=== PATIENT | female | born 1955 | race Caucasian/White ===

== ENCOUNTER 2019-11-25 07:06 | Observation (INO) ==
[2019-10-26 17:04] LABS: Basophils # (auto) 0.04 K/uL (0-0.2); Basophils % (auto) 0.7 %; Eosinophils # (auto) 0.14 K/uL (0-0.5); Eosinophils % (auto) 2.4 %; Hematocrit (blood only) 41.8 % (37-47); Hemoglobin 13.8 g/dL (12.0-16.0); Immature Granulocytes # (auto) 0.02 K/uL (0.00-0.02); Immature Granulocytes % (auto) 0.3 %; Lymphocytes # (auto) 1.34 K/uL (1.2-3.4); Lymphocytes % (auto) 22.9 %; Mean Corpuscular Hemoglobin 31.3 pg (25-34); Mean Corpuscular Volume 94.8 fL (80-100); Monocytes # (auto) 0.53 K/uL (0.11-0.59); Neutrophils # (auto) 3.79 K/uL (1.4-6.5); Neutrophils % (auto) 64.7 %; Platelet Count 185 K/uL (130-400); RDW Coefficient of Variation 13.6 % (11.5-14.5); RDW Standard Deviation 47.1 fL (36.4-46.3); Red Blood Count 4.41 M/uL (4.2-5.4); White Blood Count 5.86 K/uL (4.8-10.8)
[2019-10-26 17:12] LABS: INR 1.2 (0.9-1.1); Prothrombin Time 12.9 Seconds (9.0-12.0)
[2019-10-26 17:31] LABS: Alanine Aminotransferase 20 U/L (12-78); Albumin Level 3.7 gm/dl (3.4-5.0); Aspartate Aminotransferase 18 U/L (15-37); BUN Creatinine Ratio 14.6 (10-20); Blood Urea Nitrogen 21 mg/dl (7-18); C Reactive Protein < 0.29 mg/dl (0-0.29); Calcium 9.2 mg/dl (8.5-10.1); Carbon Dioxide 31 mmol/L (21-32); Chloride 100 mmol/L (98-107); Est GFR (African American) 44.1; Est GFR (Non-African American) 38.1; Glucose 92 mg/dl (70-99); Potassium 4.7 mmol/L (3.5-5.1); Sodium 135 mmol/L (136-145)
[2019-10-26 17:34] LABS: Albumin Globulin Ratio 0.9 (0.9-2); Alkaline Phosphatase 87 U/L (45-117); Bilirubin,Total 0.5 mg/dl (0.2-1); Total Protein 7.7 gm/dl (6.4-8.2)
--- NOTE | 2019-11-20 10:16 | Anesthesiology Consultation ---
Date of Service November 20, 2019 Assessment & Plan (1) Encounter for pre-operative examination: Chart Review Chart Review: Acceptable Risk for Surgery (pending preop Covid test results 11/19) and Patient NOT seen in Pre Admission Testing Per nursing assessment 11/19/2019, patient resides in [facility]. Travels to [facility]. Wears mask in public. Scheduled for preop COVID testing 11/20/2019. Cardio Clearance letter 06/16/19= "Low to moderate risk" for cardiac complications during proposed procedure. Optimal cardiac monitoring is required during procedure. History Surgery Operation Date: 11/25/19 12:45 Proposed Procedures p Left Total Knee Arthroplasty - Kaleb Billings MD Height/Weight Height: 5 ft 2 in Weight: 85.275 kg Allergies Allergy/AdvReac Type Severity Reaction Status Date / Time tadalafil Allergy Severe SEVERE Verified 11/19/19 15:02 MYALGIAS amoxicillin Allergy Mild RASH Verified 11/19/19 15:02 clindamycin Allergy Mild RASH Verified 11/19/19 15:02 trazodone Allergy Mild BLADDER Verified 11/19/19 15:02 ULCERATIONS Medications Home Medications Medication Instructions Recorded Confirmed Last Taken alprazolam [Xanax] 1 mg PO HS 06/05/19 11/19/19 Unknown amlodipine [Norvasc] 5 mg PO QAM 06/05/19 11/19/19 Unknown aspirin [Aspirin Low Dose] 81 mg PO QAM 06/05/19 11/19/19 Unknown calcium carbonate [Calcium 600] 1,200 mg PO QPM 06/05/19 11/19/19 Unknown carvedilol [Coreg] 6.25 mg PO BID 06/05/19 11/19/19 Unknown cholecalciferol (vitamin D3) 50 mcg PO QPM 06/05/19 11/19/19 Unknown [Vitamin D3] doxepin 50 mg PO QPM 06/05/19 11/19/19 Unknown duloxetine [Cymbalta] 60 mg PO QPM 06/05/19 11/19/19 Unknown ferrous sulfate [iron] 325 mg PO QAM 06/05/19 11/19/19 Unknown furosemide [Lasix] 20 mg PO QAM 06/05/19 11/19/19 Unknown hydroxychloroquine [Plaquenil] 200 mg PO BID 06/05/19 11/19/19 Unknown lacosamide [Vimpat] 50 mg PO BID 06/05/19 11/19/19 Unknown lamotrigine [Lamictal] 50 mg PO BID 06/05/19 11/19/19 Unknown losartan 100 mg PO QAM 06/05/19 11/19/19 Unknown omega 0-yhw-wdb-fish oil [Fish Oil] 2 cap PO QPM 06/05/19 11/19/19 Unknown pantoprazole [Protonix] 20 mg PO QAM 06/05/19 11/19/19 Unknown rivaroxaban [Xarelto] 20 mg PO QAM 06/05/19 11/19/19 Unknown sotalol 40 mg PO BID 06/05/19 11/19/19 Unknown atorvastatin 40 mg PO PM 11/19/19 11/19/19 Unknown buprenorphine [Butrans] 1 patch TRANSDERMAL Q7D 11/19/19 11/19/19 Unknown cholecalciferol (vitamin D3) 50 mcg PO QPM 11/19/19 11/19/19 Unknown [Vitamin D3] fluoxetine [Prozac] 20 mg PO QAM 11/19/19 11/19/19 Unknown levothyroxine [Synthroid] 200 mcg PO QAM 11/19/19 11/19/19 Unknown Past Medical History Medical History Anemia Stable - on iron supplement Anxiety CAD (coronary artery disease) NSTEMI with RCA stent 11/13/16. Subsequent stent occlusion with inferior STEMI 12/04/16- two PERLA to RCA. Went into complete heart block (+ pacemaker placed) Depression GERD (gastroesophageal reflux disease) Controlled and stable High cholesterol History of atrial fibrillation 2016- stable and controlled History of complete heart block History of sick sinus syndrome Hx of seizure disorder "stress induced" seizures- seen by neurologist Dr. Tan/Riddhi)- last seizure episode 01/2019- no issues since changed to Vimpat Hypertension Hypothyroidism Kidney stones No current issues Obesity Pulmonary hypertension Stable- no oxygen needed- follows with cardio - considered mild per cardio Rheumatoid arthritis Follows with bed placement coordinator - stable Past Family History Family History Grandmother (Maternal) Family history of diabetes mellitus Grandfather (Paternal) Family history of diabetes mellitus Family hx of colon cancer Past Surgical History Surgical History (Updated 11/20/19 @ 10:10 by Paula French PA-C) History of ankle surgery RIGHT History of carpal tunnel release of both wrists History of permanent cardiac pacemaker placement PLACED 2017 BRADYCARDIA (MONITORED BY DR. LUIS ZAMBRANO) History of repair of left rotator cuff History of tooth extraction Hx of cardiac cath 2011 and 2017 Hx of colonoscopy Hx of foot surgery RIGHT AND LEFT Social History Smoking Status: Never smoker Do You Dip or Chew Tobacco: No Hx Alcohol Use: No Hx Substance Use: No Testing Laboratory Results 10/26/19 13:12 10/26/19 13:12 PT 12.9 Seconds (9.0-12.0) H 10/26/19 13:12 INR 1.2 (0.9-1.1) H 10/26/19 13:12 Blood Type O Positive 10/26/19 13:12 Antibody Screen NEGATIVE 10/26/19 13:12 Electrocardiogram Date: 03/17/19 Findings: + NSR @ (60) Chest X-Ray Date: 06/12/19 Findings: + NAD There is minor subsegmental atelectasis/scarring the retroxiphoid region Echocardiogram Date: 05/07/18 EF: 60% LV Function: normal Grade I diastolic dysfunction. LA- severely dilated. RA slightly dilated. RV- mildly dilated. Mild to mod MR. Mod TR. Stress Test Date: 04/01/19 Type: nuclear No evidence of myocardial ischemia or infarction. Lexiscan stress EKG for myocardial ischemia Cardiac Catheterization Date: 12/04/16 Left Main = free of any significant disease. LAD = mild to moderate diffuse disease in the proximal to mid LAD. Circumflex =40% stenosis. RCA = PL gives collaterals over to the circumflex system. 99% stenosis in mid stent. 80% lesion at the ostium. PERLA to mid RCA, PERLA to ostial RCA Cervical Spine Date: 06/12/19 Mildly demineralized appearance of the bones. The C6 and C7 vertebral bodies are suboptimally visualized secondary to overlying soft tissue. Predental interval appears normal. Satisfactory alignment with neutral, flexion and extension without evidence of instability. Moderate disc space narrowing at C3-C4 and C6- C7 with mild C5-C6 disc space narrowing. Multilevel spondylitic spurring with moderate facet arthrosis. There is no prevertebral soft tissue swelling or opaque foreign body. Other Testing Remote Pacer check 11/05/19= [employer]. Implanted 03/18/17. RA paced 94%. RV paced 2.7%. Mode: DDDR. " There was one AHR event which appears to be one-to-one SVT @157 bpm lasting 35 seconds. This is an abnormal implantable pacemaker remote follow-up. No significant device related abnormalities were noted. Patient will continue with remote follow-up with ongoing active surveillance and quarterly remote interrogations."
--- NOTE | 2019-11-21 13:17 | History and Physical Report ---
DATE OF ADMISSION: 11/25/2019 CHIEF COMPLAINT: Left knee pain, discomfort and stiffness. HISTORY OF PRESENT ILLNESS: The patient is a 64-year-old female who has a custodial diagnosis of underlying rheumatoid arthritis who presents for treatment of her left knee. She has got a long history of left knee pain and discomfort, describes it has gotten worse over the past 10 years. She has been through extensive conservative treatment, which has not been very successful. She is not interested in anymore conservative care and would like to have her left knee replaced. She describes global pain in the knee. The more she walks, the more it hurts. She can walk a couple of blocks and that is about it. She limps with every step. She has nighttime pain. Of note, this patient did have a right ankle fused by myself back in 11/2014, done well from this. PAST MEDICAL HISTORY: 1. Hypertension. 2. Pacemaker placement. 3. Anxiety/depression. 4. Pulmonary hypertension. 5. History of a stress and seizure in the past. 6. Hypothyroidism. 7. Chronic anemia. 8. Kidney stones. PAST SURGICAL HISTORY: Include: 1. Bilateral carpal tunnel released. 2. Vásquez's neuromas excision. 3. Left shoulder surgery. 4. Right ankle arthrodesis. 5. Cardiac stent placement, left pacemaker placement. ALLERGIES: AMOXICILLIN, WHICH CAUSES A RASH. No breathing problems. ALSO DESCRIBES ALLERGIES TO CLINDAMYCIN, DESYREL, AND ADCIRCA. CURRENT MEDICINES: Include: 1. Aspirin 81 mg a day. 2. Synthroid 175 mcg a day. 3. Vimpat 50 mg twice a day. 4. Losartan 100 mg in the morning. 5. Norvasc 5 mg in the morning. 6. Sotalol 40 mg twice a day. 7. Coreg 6.25 mg twice a day. 8. Xarelto 20 mg in the morning. 9. Lamictal 50 mg twice a day. 10. Protonix. 11. Cymbalta. 12. Plaquenil. 13. Fish oil. 14. Fentanyl patch every 72 hours. SOCIAL HISTORY: A 64-year-old female. She does not smoke. FAMILY HISTORY: Noncontributory. REVIEW OF SYSTEMS: Significant for underlying rheumatoid disease. Denies any current chest pain or shortness of breath. Does have a cardiac history with a pacemaker and stent placed. She is on Xarelto. No DVTs or PEs in the past. PHYSICAL EXAMINATION: GENERAL: Shows a pleasant, middle-aged female. Looks to be in reasonably good health. HEENT: Benign. NECK: Supple, no lymphadenopathy. LUNGS: Clear to auscultation. HEART: Has a regular rate and rhythm. ABDOMEN: Soft, nontender, nondistended. EXTREMITIES: Grossly neurovascularly intact except as follows. Examination of the left knee reveals the patient walks with a stiff knee gait. She clearly limps on this side. She had varus deformity to her knee. She has very stiff knee with about 10 degree flexion contracture and can only bend to about 90 degrees, which is painful. No pain with hip motion. Small knee effusion. X-RAYS: X-rays of the left knee reviewed. Shows advanced medial compartment DJD. She has complete loss of medial joint space. She has got varus deformity to her knee with cystic changes of the medial femoral condyle and medial tibial plateau. She has subchondral sclerosis. She has advanced patellofemoral disease. ASSESSMENT: A 64-year-old white female with multiple underlying medical issues including significant rheumatoid disease, hypertension, coronary artery disease status post stent placement, cardiac pacemaker placement, hypothyroidism, chronic anemia with advanced left knee degenerative joint disease. She has failed conservative treatment. She would like to have her left knee replaced. PLAN: We will take her to the operating table and do left total knee replacement. The risks and benefits of this procedure were explained to the patient including but not limited to DVT, PE, , infection, neurological injury, vascular injury, bleeding problem, pain, limited range of motion, stiffness, failure to relieve her symptoms, incomplete relief of symptoms, need for further surgery in future, fracture, leg length inequality, nerve palsy, need for revision surgery. The patient understands and desires to proceed. Informed consent was obtained. She knows to stop her Xarelto 3 days preop. She will take her sotalol in the morning with a sip of water. We will likely put some vancomycin in the cement due to her immunocompromised state. MTDD
[~2019-11-25 07:06] MED LIST: ACETAMINOPHEN 500 MG TAB PO SCH; BUPIVACAINE 0.25% 30 ML VIAL ONE; BUPIVACAINE 0.5 % 5 MG/1 ML PF 10ML VIAL ONE; BUPIVACAINE LIPOSOME/PF 266 MG, BUPIVACAINE/EPINEPHRINE 50 ML, SODIUM CHLORIDE 0.9% 30 ... INFIL SCH; CEFAZOLIN 2000MG 2,000 MG/15 ML SYR IV SCH; FAMOTIDINE 20 MG TAB PO SCH; GABAPENTIN 300 MG CAP PO SCH; LR 15ML/HR IV SCH; LR 60ML/HR IV SCH; METOCLOPRAMIDE HCL 10 MG TABLET PO SCH; TRANEXAMIC ACID 1,000 MG **IV Intra-op IV SCH
--- NOTE | 2019-11-25 07:09 | History & Physical Bridge Note ---
Date of Service November 25, 2019 History & Physical Bridge Note I have examined the patient, reviewed the History & Physical and in the interval since the performance of the History & Physical I have noted the following changes of clinical significance: no changes noted
[2019-11-25] MEDS ORDERED: MIDAZOLAM HCL 1 MG/ML 2ML VIAL ONE (08:22)
[2019-11-25] MEDS ORDERED: ePHEDrine sulfate 50 MG/ML AMP IV PRN (08:47)
[2019-11-25] MEDS ORDERED: BUPIVACAINE/EPINEPHRINE 0.25% 1:200,000 30 ML VIAL ONE (08:47)
[2019-11-25] MEDS ORDERED: ONDANSETRON INJ 2 MG/ML 2 ML VIAL IV PRN ×2 (08:47→13:30)
[2019-11-25] MEDS ORDERED: HYDROmorphone INJ 1 MG/ML SYRINGE IV PRN (08:47)
[2019-11-25] MEDS ORDERED: ATROPINE SULFATE 0.1 MG/ML 10ML SYR IV PRN (08:47)
[2019-11-25] MEDS ORDERED: VANCOMYCIN HCL 1000MG/20ML VIAL ONE (08:48)
[2019-11-25] MEDS ORDERED: SODIUM CHLORIDE 0.9% PF 50 ML VIAL ONE (08:48)
[2019-11-25] MEDS ORDERED: BUPIVACAINE LIPOSOME 1.3% 266 MG/20 ML VIAL ONE (08:48)
[2019-11-25] MEDS ORDERED: BACITRACIN INJ 50,000 UNIT VIAL ONE (08:48)
[2019-11-25] MEDS ORDERED: fentaNYL citrate 100 MCG/2 ML VIAL ONE ×2 (09:06→09:22)
[2019-11-25] MEDS ORDERED: HYDROmorphone INJ 2 MG/ML SYR/VIAL ONE (09:22)
[2019-11-25] MEDS ORDERED: PROPOFOL IV EMULSION 10 MG/ML 20 ML VIAL IV ONE (09:30)
[2019-11-25] MEDS ORDERED: ONDANSETRON INJ 2 MG/ML 2 ML VIAL ONE ×2 (09:30→11:09)
--- NOTE | 2019-11-25 10:54 | Post Operative Brief Note ---
PG Immediate Post Op with CF Date of Surgery November 25, 2019 Pre & Post Diagnosis Operation Date: 11/25/19 09:05 Pre-Op Diagnosis: Left Knee Degenerative Joint Disease; Knee Pain Post-Op Diagnosis: Left Knee Degenerative Joint Disease; Knee Pain I identified the patient and participated in the time-out.: Yes Procedure Operation Date: 11/25/19 09:05 Actual Procedures p Left Total Knee Arthroplasty(Left) - Kaleb Billings MD Surgeon Kaleb Billings MD Orientation & Mobility Specialist Felicia, [facility] Estimated Blood Loss 50 Findings Consistent with Post-Op Diagnosis Fluids 1400 cc Specimens Specimen Description: Permanent Specimen: A) Left Knee Bone & Tissue Drains Craig Catheter Anesthesia Type General Regional Complications none Disposition Accompanied Patient To Recovery: No Disposition: Recovery Room
[2019-11-25] MEDS ORDERED: DEXAMETHASONE SOD INJ 4 MG/ML VIAL ONE (11:09)
--- NOTE | 2019-11-25 11:09 | Operative Report ---
Post Operative Report Pre & Post Diagnosis Operation Date: 11/25/19 09:05 Pre-Op Diagnosis: Left Knee Degenerative Joint Disease; Knee Pain Post-Op Diagnosis: Left Knee Degenerative Joint Disease; Knee Pain I identified the patient and participated in the time-out.: Yes Procedure Operation Date: 11/25/19 09:05 Actual Procedures p Left Total Knee Arthroplasty(Left) - Kaleb Billings MD Surgeon Kaleb Billings MD Hand Kiss Setter Felicia, PAC Estimated Blood Loss 50 Findings Consistent with Post-Op Diagnosis Operative findings revealed advanced left knee tricompartment DJD. She had extensive grade 4 changes in all 3 compartments most severe in the medial side. She had a very large defect and deficiency of her posterior medial tibial plateau with extensive wear. She had osteophytes in all 3 compartments. Moderate sized joint effusion. She had a fixed varus deformity to her knee. Fluids 1400 cc. Specimens Left knee sent for pathology. Drains None. Anesthesia Type General Regional Complications none Disposition Accompanied Patient To Recovery: No Disposition: Recovery Room Indications Patient is a 64-year-old female with a long history of rheumatoid disease and managed conservatively. Over the years she is developed increased pain discomfort and significant stiffness in her left knee. She been through extensive conservative care which is not been very successful. X-rays show advanced left knee DJD. She had a very stiff knee and painful and elected proceed with surgical treatment. Description of Procedure Operative implants consist of: 1. Biomet Vanguard size 65 left stabilized femoral component. 2. Biomet size 71 tibial tray. 3. 10 mm posterior stabilized polyethylene insert. 4. 31 x 8 all poly-patella. The patient was taken to the operating identified and placed on the operating table supine position protectors were properly padded. IV antibiotics arrived by anesthesia team. A general anesthetic was implemented as she had been on Lovenox up until about 24 hours preop. A abductor canal block had been provided in the holding area. Craig catheter was placed in sterile fashion. Left factor was then placed in the left lower extremity was then prepped and draped in usual sterile fashion. Left leg was elevated exsanguinated with use of an Esmarch and turns placed at 300 mmHg. An anterior posterior left knee was then performed to longitudinal incision centered over the patella. Sharp dissection was gone through subcutaneous tissue down to the extensor mechanism. A medial parapatellar arthrotomy incision was made. Some subperiosteal dissection was carried out medially. We did a pretty extensive dissection posterior medially due to the tightness of her knee. The fat pad was resected from each patella tendon. Lateral patellofemoral ligament was released. Patella was subluxated laterally and the knee was flexed. Even doing this I cannot subluxate the tibia anteriorly so we elected to cut the femur first. In his distal femur then with a sharp drill. Intramedullary canal was suction. A left 5 degree valgus cutting guide was placed. This femoral cutting block was pinned in place and adjusted to a cut an additional 3 mm of bone off distal femur. The femur was then sized to a size 65. We did downsize a slightly. The AP cutting block was pinned parallel to the epicondylar axis which was 6 degrees of external rotation. Anterior cut, anterior chamfer, posterior cut, posterior chamfer cuts were made. Box cutting guide was placed in the just slight lateral box cut was made. The knee was flexed. The remnants of the medial lateral menisci were excised. I then subluxated the tibia anteriorly. The external tibial alignment jig was then placed in the interface the tibia and adjusted 16 mm medially. Proximal tibial cut was made essentially flush with the most efficient aspect of the posterior medial tibial plateau. There were some large osteophytes posteriorly which kept the tibia from some subluxating and we I did remove these. The tibia sized to a size 71. The drill and stem punch were then used to create the defect in proximal tip for the tibial tray. I then trialed the knee in 10 mm insert fit most appropriately. Attention drawn the patella. The patella was cleaned of all soft tissues. Patella thickness measured 22 mm in thickness was cut down to 13. Was sized to a size 31 patella. Locals were drilled for 31 patella. The lateral osteophyte is moved. Patella button was placed. Knee was taken through range of motion patella tracked nicely with no thumbs test. Attention drawn to place the permanent components. New profile trial components were removed. A bone plug was placed into the distal femur limit blood loss put a double batch Palacos G cement was mixed. I did add an additional gram of vancomycin due to her immune immunocompromise state. A Biomet MyWantsguard size 65 left posterior stabilized femoral component, size 71 tibial tray, 10 mm posterior box polyethylene insert, and a 31 x 8 all poly- patella were then cemented in place. Knees brought out into full extension total cement hardened. Final cement check was then performed. The pericapsular tissues were injected with total 100 cc of combination of 20 cc of Exparel, 30 cc normal saline, 50 cc of quarter percent Marcaine with epinephrine. Patient did receive 1 g of tranexamic acid but the tourniquet was then let down for final tourniquet time of 65 minutes. Hemostasis surgery was electrocautery. The extensor mechanism closed with combination 1 PDS suture #1 Vicryl suture in intrni-yk-nvanl fashion for extensor mechanism checked found to be intact the subcutaneous tissue then closed with 2-0 Dexon suture in a buried interrupted fashion. Skin was closed skin red. Leg was then cleaned dried and sterile dressed composed Xeroform, 4 x 4's, sterile cast padding, Ronnie bandage were applied. Patient then brought out of general incision transferred to the recovery room in stable condition. Patient tolerated procedure well no complications. Carrillo Alvarez, my physician customer care assistant, was present for the entire case. His assistance was required for appropriate positioning, prepping and draping, surgical exposure, performing the technical details of the operation, placing the implants, closure of the wound, and placement of the sterile bandage. I attest to the content of the Intraoperative Record and any orders documented therein. Any exceptions are noted below.
[2019-11-25] MEDS: fentaNYL citrate 100 MCG/2 ML VIAL IV PRN ×2 (11:28→11:36)
--- NOTE | 2019-11-25 11:29 | XRay Report ---
LEFT KNEE 2 VIEWS History: Left total knee arthroplasty. Degenerative arthritis. Postop. FINDINGS: The patient is status post a left total knee arthroplasty. The hardware is intact. No fract ure or dislocation. Skin red are in place. IMPRESSION: Left total knee arthroplasty. No evidence for hardware complication. ACT 112: Negative or not required by law. Electronically signed by: Reji Toscano M.D. 11/25/2019 11:28 AM
[2019-11-25] MEDS: SODIUM CHLORIDE 0.9% 1000ML 1,000 ML IV SCH ×2 (13:27→23:08)
[2019-11-25] MEDS ORDERED: bisacodyL 10 MG SUPP PR PRN (13:30)
[2019-11-25] MEDS ORDERED: MAGNESIUM HYDROXIDE SUSP 30 ML UDC PO PRN (13:30)
[2019-11-25] MEDS ORDERED: METOCLOPRAMIDE HCL INJ 5 MG/ML 2 ML VIAL IV PRN (13:30)
[2019-11-25] MEDS ORDERED: ALUMINUM/MAGNESIUM SUSP 30 ML UDC PO PRN (13:30)
[2019-11-25] MEDS ORDERED: NALOXONE HCL 0.4 MG/1 ML VIAL/CARP IV PRN (13:35)
[2019-11-25] MEDS: KETOROLAC TROMETHAMINE 15 MG/ML VIAL IV SCH ×2 (13:55→20:25)
--- NOTE | 2019-11-25 13:55 | Progress Notes ---
DATE: 11/25/2019 SUBJECTIVE: A 64-year-old female postop from a left knee replacement. She is doing well. Not having much in the way of pain yet. No chest pain or shortness of breath. Not feeling dizzy or lightheaded. OBJECTIVE: VITAL SIGNS: Temperature 36.4. Vital signs stable. GENERAL: Shows a pleasant, middle-aged female. She is sitting up in her bed, looks pretty comfortable. LUNGS: Clear to auscultation. HEART: Has a regular rate and rhythm. ABDOMEN: Soft, nontender, nondistended. EXTREMITIES: Grossly neurovascularly intact except as follows: Examination of the left lower extremity reveals the leg to be well aligned. Dressing is clean, dry and intact. She can dorsiflex and plantarflex her foot appropriately. She is neurologically intact. X-RAYS: X-rays of the left knee from recovery room are reviewed. It shows left cemented posterior stabilized total knee arthroplasty. Components looked to be in good position. No signs of problems. ASSESSMENT: A 64-year-old white female with multiple medical comorbidities including pretty advanced rheumatoid arthritis, postoperative from a left knee replacement, doing pretty well. Her pain is controlled. She is neurologically intact. PLAN: 1. DVT prophylaxis including thigh-high TEDs, SCDs, and we will start her back on Xarelto at a prophylactic dose 24 hours postop and likely discharge on the full dose. 2. PT/OT. Weight bear as tolerated. Left total knee protocol. 3. Pain control, doing pretty well with current pain regimen. 4. IV antibiotics x24 hours. 5. Disposition: She is planning to be discharged to home and she is going to do outpatient therapy.
[2019-11-25] MEDS ORDERED: HYDROmorphone INJ 0.5 MG/0.5 ML SYR IV PRN (14:00)
[2019-11-25] MEDS: Scopolamine CHECK PATCH PLACEMENT SCH (15:38)
--- NOTE | 2019-11-25 16:27 | Anesthesiology Progress Note ---
Date of Service November 25, 2019 Anesthesia Post Procedure Vital Signs Vital Signs: Temp Pulse Pulse Resp BP Pulse Ox 11/25/19 15:10 36.6 C 60 18 117/72 97 11/25/19 14:10 36.4 C L 59 L 16 120/69 100 11/25/19 13:15 36.4 C L 60 16 131/76 100 11/25/19 12:40 36.8 C 59 L 14 119/72 99 11/25/19 12:10 36.8 C 60 12 114/70 97 11/25/19 12:00 60 20 104/47 L 96 11/25/19 11:50 60 12 101/42 L 97 11/25/19 11:40 36.8 C 60 15 113/51 L 97 11/25/19 11:30 60 13 107/47 L 97 11/25/19 11:20 60 18 116/59 L 100 11/25/19 11:10 60 17 126/59 L 100 11/25/19 11:04 37.1 C 60 12 119/59 L 100 11/25/19 07:37 37 C 61 18 129/74 99 Pain Intensity Left Knee: Pain Intensity: 2 Transfer of Care Handoff Completed per policy Notes Mental Status: alert / awake / arousable and participated in evaluation Patient Amnestic to Procedure: Yes Nausea / Vomiting: adequately controlled Pain: adequately controlled Airway Patency, RR, SpO2: stable & adequate BP & HR: stable & adequate Hydration State: stable & adequate Anesthetic Complications: no major complications apparent and Pt Satisfied with anesthetic care
[2019-11-25] MEDS: OXYCODONE HCL IR 5 MG TAB (IMMEDIATE RELEASE) PO PRN ×2 (16:48→22:47)
[2019-11-25] MEDS: CEFAZOLIN 2000MG 2,000 MG/15 ML SYR IV SCH (16:49)
[2019-11-25] MEDS: ASCORBIC ACID 500 MG TAB PO SCH (16:49)
[2019-11-25] MEDS ORDERED: FERROUS GLUCONATE 324 MG TAB PO SCH (17:00)
[2019-11-25] MEDS: DOCUSATE SODIUM 100 MG CAP PO SCH (20:26)
[2019-11-25] MEDS: SOTALOL HCL 80 MG TAB PO SCH (20:26)
[2019-11-25] MEDS: lamoTRIgine 25 MG TAB PO SCH (20:27)
[2019-11-25] MEDS: carvediloL 6.25 MG TAB PO SCH (20:27)
[2019-11-25] MEDS: DULOXETINE HCL 60 MG CAP PO SCH (20:27)
[2019-11-25] MEDS: OMEGA-3 (PURIFIED FISH OIL) 1 GM CAP PO SCH (20:28)
[2019-11-25] MEDS: ATORVASTATIN 40 MG TAB PO SCH (20:28)
[2019-11-25] MEDS: CALCIUM CARBONATE 1250MG TAB PO SCH (20:28)
[2019-11-25] MEDS: TAPENTADOL HCL ER 50 MG TABCR PO SCH (20:28)
[2019-11-25] MEDS: LACOSAMIDE 50 MG TABLET PO SCH (20:29)
[2019-11-25] MEDS: DOXEPIN HCL 50 MG CAPSULE PO SCH (20:29)
[2019-11-25] MEDS: SENNA 8.6 MG TAB PO SCH (20:29)
[2019-11-25] MEDS: HYDROXYCHLOROQUINE SULFATE 200 MG TAB PO SCH (20:29)
[2019-11-25] MEDS: LATANOPROST 0.005% OP SOLN 2.5 ML BTL OPB SCH (20:30)
[2019-11-25] MEDS: CHOLECALCIFEROL 1,000 UNITS 25 MCG TAB PO SCH (20:30)
[2019-11-25] MEDS ORDERED: Nursing to Pharmacy Communication SCH (21:00)
[2019-11-25] MEDS: ALPRAZolam 0.5 MG TABLET PO SCH (22:10)
[2019-11-26] MEDS: Scopolamine CHECK PATCH PLACEMENT SCH ×4 (00:08→23:44)
[2019-11-26] MEDS: CEFAZOLIN 2000MG 2,000 MG/15 ML SYR IV SCH (01:50)
[2019-11-26] MEDS: KETOROLAC TROMETHAMINE 15 MG/ML VIAL IV SCH ×2 (01:50→07:37)
[2019-11-26] MEDS: LEVOTHYROXINE SODIUM 200 MCG TABLET PO SCH (05:29)
[2019-11-26 06:11] LABS: Hematocrit (blood only) 32.4 % (37-47); Hemoglobin 10.5 g/dL (12.0-16.0); Mean Corpuscular Hemoglobin 31.6 pg (25-34); Mean Corpuscular Hgb Conc 32.4 g/dL (32-36); Mean Corpuscular Volume 97.6 fL (80-100); Mean Platelet Volume 10.9 fL (7.4-10.4); Platelet Count 138 K/uL (130-400); RDW Coefficient of Variation 13.6 % (11.5-14.5); RDW Standard Deviation 48.7 fL (36.4-46.3); Red Blood Count 3.32 M/uL (4.2-5.4); White Blood Count 10.91 K/uL (4.8-10.8)
[2019-11-26 06:39] LABS: BUN Creatinine Ratio 21.5 (10-20); Creatinine Clr Calc Pharmacy 37.1 ml/min; Est GFR (African American) 41.6; Est GFR (Non-African American) 35.9; Potassium 4.6 mmol/L (3.5-5.1)
--- NOTE | 2019-11-26 07:24 | Orthopedic Progress Note ---
Date of Service November 26, 2019 Assessment & Plan (1) Status post total left knee replacement: seen and examined by Dr. Billings. Pain is controlled. dvt prophylaxis: teds, scds, xarelto pt/ot, wbat continue d/c planning: home tomorrow with home health Admission and Anticipated Discharge Date Admission Date: November 25, 2019 Subjective 64 y/o female POD #1 from left total knee replacement. Doing well. No chest pain or shortness of breath. Pain is controlled. Physical Exam Physical Exam: Alert and oriented. VSS. NAD Left leg: dressing clean, dry, intact. NVI. Able to DF/PF appropriately. Results & Data ([facility]) Vital Signs (Past 12 Hours) Vital Signs Temp Pulse Resp BP BP Pulse Ox 11/26/19 03:32 37.1 C 60 16 100/64 91 11/25/19 22:55 36.8 C 60 16 108/67 93 11/25/19 20:19 60 143/62 H 91 PG Care Time/CCT Total # of Minutes Spent Total Time Spent with Patient: Total time spent is greater than 50% in coordination of care (as documented) at patient's floor/unit and/or counseling patient: Coding Level of Care Code None Diagnoses Status post total left knee replacement Z96.652
[2019-11-26] MEDS: ASCORBIC ACID 500 MG TAB PO SCH ×2 (07:36→16:04)
[2019-11-26] MEDS: FERROUS SULFATE 325 MG TAB PO SCH (07:37)
[2019-11-26] MEDS: SOTALOL HCL 80 MG TAB PO SCH ×2 (08:23→21:56)
[2019-11-26] MEDS: TAPENTADOL HCL ER 50 MG TABCR PO SCH ×2 (08:23→21:58)
[2019-11-26] MEDS: LOSARTAN POTASSIUM 50 MG TAB PO SCH (08:24)
[2019-11-26] MEDS: DOCUSATE SODIUM 100 MG CAP PO SCH ×2 (08:24→21:57)
[2019-11-26] MEDS: carvediloL 6.25 MG TAB PO SCH ×2 (08:24→21:57)
[2019-11-26] MEDS: FUROSEMIDE 20 MG TAB PO SCH (08:25)
[2019-11-26] MEDS: ASPIRIN 81 MG ECTAB PO SCH (08:25)
[2019-11-26] MEDS: lamoTRIgine 25 MG TAB PO SCH ×2 (08:25→21:58)
[2019-11-26] MEDS: AMLODIPINE BESYLATE 5 MG TAB PO SCH (08:26)
[2019-11-26] MEDS: FLUOXETINE HCL 20 MG CAP PO SCH (08:26)
[2019-11-26] MEDS: MULTIVITAMIN TAB PO SCH (08:26)
[2019-11-26] MEDS: PANTOprazole 40 MG TAB PO SCH (08:26)
[2019-11-26] MEDS: HYDROXYCHLOROQUINE SULFATE 200 MG TAB PO SCH ×2 (08:26→21:59)
[2019-11-26] MEDS: LACOSAMIDE 50 MG TABLET PO SCH ×2 (08:27→22:01)
[2019-11-26] MEDS: RIVAROXABAN 10 MG TABLET PO SCH (11:11)
[2019-11-26] MEDS: OXYCODONE HCL IR 5 MG TAB (IMMEDIATE RELEASE) PO PRN (19:10)
[2019-11-26] MEDS: DULOXETINE HCL 60 MG CAP PO SCH (21:57)
[2019-11-26] MEDS: ATORVASTATIN 40 MG TAB PO SCH (21:58)
[2019-11-26] MEDS: OMEGA-3 (PURIFIED FISH OIL) 1 GM CAP PO SCH (21:59)
[2019-11-26] MEDS: CALCIUM CARBONATE 1250MG TAB PO SCH (21:59)
[2019-11-26] MEDS: SENNA 8.6 MG TAB PO SCH (22:00)
[2019-11-26] MEDS: DOXEPIN HCL 50 MG CAPSULE PO SCH (22:00)
[2019-11-26] MEDS: ALPRAZolam 0.5 MG TABLET PO SCH (22:01)
[2019-11-26] MEDS: LATANOPROST 0.005% OP SOLN 2.5 ML BTL OPB SCH (22:01)
[2019-11-26] MEDS: CHOLECALCIFEROL 1,000 UNITS 25 MCG TAB PO SCH (22:01)
[2019-11-27] MEDS: LEVOTHYROXINE SODIUM 200 MCG TABLET PO SCH (06:20)
[2019-11-27] MEDS: OXYCODONE HCL IR 5 MG TAB (IMMEDIATE RELEASE) PO PRN ×2 (07:14→12:40)
[2019-11-27] MEDS: Scopolamine CHECK PATCH PLACEMENT SCH (07:15)
[2019-11-27] MEDS: FERROUS SULFATE 325 MG TAB PO SCH (07:16)
[2019-11-27] MEDS: ASCORBIC ACID 500 MG TAB PO SCH (07:16)
--- NOTE | 2019-11-27 07:35 | Progress Notes ---
DATE: 11/27/2019 SUBJECTIVE: A 64-year-old white female postop day 2 from left knee replacement. She is doing pretty well. Had a pretty good therapy session. Pain is controlled. No chest pain or shortness of breath. Not feeling dizzy or lightheaded. OBJECTIVE: VITAL SIGNS: Temperature is 36.8. Vital signs stable. GENERAL: Shows a pleasant, middle-aged female. She is lying in bed, looks pretty comfortable. I had to wake her this morning. EXTREMITIES: Examination of the left leg reveals the leg to be well aligned. Dressing is clean, dry and intact. Calf is soft and supple. She is neurologically intact. PLAN: 1. DVT prophylaxis including thigh-high TEDs, SCDs, and she is back on her Xarelto. 2. PT/OT. Weightbear as tolerated. Left total knee protocol. 3. Pain control, doing well with current pain regimen. 4. Disposition: Plan to discharge to home and she is going to do outpatient therapy locally.
[2019-11-27] MEDS: LACOSAMIDE 50 MG TABLET PO SCH (08:36)
[2019-11-27] MEDS: TAPENTADOL HCL ER 50 MG TABCR PO SCH (08:36)
[2019-11-27] MEDS: SOTALOL HCL 80 MG TAB PO SCH (08:36)
[2019-11-27] MEDS: carvediloL 6.25 MG TAB PO SCH (08:37)
[2019-11-27] MEDS: ASPIRIN 81 MG ECTAB PO SCH (08:37)
[2019-11-27] MEDS: DOCUSATE SODIUM 100 MG CAP PO SCH (08:37)
[2019-11-27] MEDS: LOSARTAN POTASSIUM 50 MG TAB PO SCH (08:37)
[2019-11-27] MEDS: FUROSEMIDE 20 MG TAB PO SCH (08:38)
[2019-11-27] MEDS: lamoTRIgine 25 MG TAB PO SCH (08:38)
[2019-11-27] MEDS: HYDROXYCHLOROQUINE SULFATE 200 MG TAB PO SCH (08:38)
[2019-11-27] MEDS: MULTIVITAMIN TAB PO SCH (08:38)
[2019-11-27] MEDS: PANTOprazole 40 MG TAB PO SCH (08:39)
[2019-11-27] MEDS: AMLODIPINE BESYLATE 5 MG TAB PO SCH (08:39)
[2019-11-27] MEDS: FLUOXETINE HCL 20 MG CAP PO SCH (08:39)
[2019-11-27] MEDS: RIVAROXABAN 10 MG TABLET PO SCH (08:39)
--- NOTE | 2019-12-04 15:00 | Discharge Summary ---
Date of Service December 04, 2019 Admission HPI Per Admitting Provider Documented in the H & P Admission Exam (Per Admitting) Constitutional Documented in the H & P Discharge Data Consultations 11/25/19 13:05 Consult Case Management - Discharge Planning Routine Procedures Performed Operation Date: 11/25/19 09:05 Actual Procedures p Left Total Knee Arthroplasty(Left) - Kaleb Billings MD Hospital Course (1) Status post total left knee replacement: This patient is a 64 year old female admitted on 11/25/19 and underwent total knee arthroplasty. She tolerated the procedure well and there were no complications. Transferred to the PACU post op and later to the orthopedic floor for further care. She was given ancef for antibiotic prophylaxis. She was also given LUCY stockings, SCDs, and xarelto for DVT prophylaxis. Hemoglobin, hematocrit, and vital signs were monitored during her hospital stay and remained stable. Did not require any blood transfusions. There were no complications during her hospital stay. By post op day #2 the patient was tolerating a regular diet, pain was reasonably controlled with oral pain medicine, and she was participating in physical therapy. On post op day #2 the patient was discharged home. She was given printed discharge instructions including prescriptions for oxycodone. Continue physical therapy, weight bearing as tolerated. Continue LUCY stockings. Follow up approximately 2 weeks post op or sooner if there are problems or concerns. Coding Level of Care Code None Diagnoses Status post total left knee replacement Z96.652
== END 2019-11-27 13:15 | disposition home or self-care (01) ==
LOC: 3E 07:06 → ASU 07:06
DX: Z88.8 Allergy status to other drugs, medicaments and biological substances; F41.8 Other specified anxiety disorders; M17.12 Unilateral primary osteoarthritis, left knee; Z79.82 Long term (current) use of aspirin; Z79.899 Other long term (current) drug therapy; I10 Essential (primary) hypertension; E03.9 Hypothyroidism, unspecified; Z68.34 Body mass index [BMI] 34.0-34.9, adult; I27.20 Pulmonary hypertension, unspecified; Z79.01 Long term (current) use of anticoagulants; Z88.1 Allergy status to other antibiotic agents; E66.9 Obesity, unspecified

== ENCOUNTER 2024-10-27 08:52 | Observation (INO) ==
--- NOTE | 2024-09-30 14:22 | PAT Medication Instructions ---
Medication Instructions Date of Service September 30, 2024 Home Medications amlodipine 5 mg tablet (Norvasc) 5 mg PO QAM aspirin 81 mg tablet,delayed release (Bryce Low Dose Aspirin) 81 mg PO QAM carvedilol 6.25 mg tablet (Coreg) 6.25 mg PO BID doxepin 50 mg capsule 50 mg PO HS ferrous sulfate 325 mg (65 mg iron) tablet (iron) 650 mg PO QPM furosemide 20 mg tablet (Lasix) 20 mg PO BID hydroxychloroquine 200 mg tablet (Plaquenil) 200 mg PO BID lacosamide 50 mg tablet (Vimpat) 50 mg PO BID losartan 100 mg tablet 100 mg PO QAM omega 9-pue-lxw-fish oil 1,000 mg (120 mg-180 mg) capsule (Fish Oil) 2 cap PO QPM sotalol 80 mg tablet 40 mg PO BID atorvastatin 40 mg tablet (Lipitor) 40 mg PO HS fluoxetine 20 mg capsule (Prozac) 20 mg PO QAM apixaban 5 mg tablet (Eliquis) 5 mg PO BID calcium carbonate 500 mg PO HS cholecalciferol (vitamin D3) 125 mcg (5,000 unit) tablet (Vitamin D3) 125 mcg PO HS hydrocodone 7.5 mg-acetaminophen 325 mg tablet 1 tab PO Q6H PRN lamotrigine 100 mg tablet (Lamictal) 100 mg PO BID levothyroxine 175 mcg tablet 175 mcg PO QAM multivitamin 1 tab PO HS pantoprazole 40 mg tablet,delayed release 40 mg PO QAM ASK your prescriber and surgeon aspirin 81 mg tablet,delayed release (Bryce Low Dose Aspirin) 81 mg PO QAM hydroxychloroquine 200 mg tablet (Plaquenil) 200 mg PO BID apixaban 5 mg tablet (Eliquis) 5 mg PO BID(in order for spinal or epidural anesthesia, Eliquis needs to be stopped 72 hours/3 days before surgery. Please check if okay with doctor that prescribes this to you) STOP taking 2 weeks before surgery (or as soon as possible if surgery is within 2 weeks) omega 8-cvy-lfb-fish oil 1,000 mg (120 mg-180 mg) capsule (Fish Oil) 2 cap PO QPM DO NOT take the morning of surgery furosemide 20 mg tablet (Lasix) 20 mg PO BID losartan 100 mg tablet 100 mg PO QAM Take morning of surgery With a small sip of water, OTHERWISE NOTHING TO EAT OR DRINK AFTER MIDNIGHT: amlodipine 5 mg tablet (Norvasc) 5 mg PO QAM carvedilol 6.25 mg tablet (Coreg) 6.25 mg PO BID lacosamide 50 mg tablet (Vimpat) 50 mg PO BID sotalol 80 mg tablet 40 mg PO BID fluoxetine 20 mg capsule (Prozac) 20 mg PO QAM hydrocodone 7.5 mg-acetaminophen 325 mg tablet 1 tab PO Q6H PRN(if needed) lamotrigine 100 mg tablet (Lamictal) 100 mg PO BID levothyroxine 175 mcg tablet 175 mcg PO QAM pantoprazole 40 mg tablet,delayed release 40 mg PO QAM Take evening before surgery carvedilol 6.25 mg tablet (Coreg) 6.25 mg PO BID doxepin 50 mg capsule 50 mg PO HS ferrous sulfate 325 mg (65 mg iron) tablet (iron) 650 mg PO QPM furosemide 20 mg tablet (Lasix) 20 mg PO BID lacosamide 50 mg tablet (Vimpat) 50 mg PO BID sotalol 80 mg tablet 40 mg PO BID atorvastatin 40 mg tablet (Lipitor) 40 mg PO HS calcium carbonate 500 mg PO HS cholecalciferol (vitamin D3) 125 mcg (5,000 unit) tablet (Vitamin D3) 125 mcg PO HS hydrocodone 7.5 mg-acetaminophen 325 mg tablet 1 tab PO Q6H PRN(if needed) lamotrigine 100 mg tablet (Lamictal) 100 mg PO BID multivitamin 1 tab PO HS Other Notes If you have any questions please call us at [phone] or [phone] or [phone] or [phone]
--- NOTE | 2024-10-05 10:26 | Anesthesiology Consultation ---
Date of Service October 05, 2024 Assessment & Plan (1) Encounter for pre-operative examination: Plan - [facility] pacemaker. - cardiology office visit 08/04/24: "...functional class II dyspnea...has a compression fracture in her lumbar spine that causes her pain down both legs which limits her activity. BP well controlled at present...coronary artery disease, inferior wall STEMI, emergent PCI to RCA on 12/04/16 had a RCA stent at [facility] for NSTEMI on 11/13/16. Sinus bradycardia, sick sinus syndrome s/p dual chamber pacemaker on 03/18/17...pulmonary hypertension mild. paroxysmal atrial fibrillation on Xarelto...Continue current medications..." - Outpatient joint assessment: Patient is currently scheduled for inpatient pathway. If re-evaluated and patient/surgeon requests outpatient pathway, patient is not an ideal candidate for outpatient joint program. Chart Review Chart Review: Acceptable Risk for Surgery and Patient seen in Pre Admission Testing Teaching & Discussion Pre-Anesthesia Teaching/Discussion Notes: Instructed NPO after midnight before surgery, except medications with 15 cc of water. Medication instructions pro vided according to the PAT guidelines. History Surgery Operation Date: 10/27/24 07:00 Proposed Procedures p Right Total Knee Arthroplasty - Kaleb Billings MD Height/Weight Height: 5 ft 2 in Weight: 93.5 kg Allergies Allergy/AdvReac Type Severity Reaction Status Date / Time tadalafil Allergy Severe SEVERE Verified 09/29/24 14:41 MYALGIAS aripiprazole [From Abilify] Allergy Intermediate Muscle Pain Verified 09/29/24 14:41 amoxicillin Allergy Mild RASH Verified 09/29/24 14:41 clindamycin Allergy Mild RASH Verified 09/29/24 14:41 trazodone Allergy Mild BLADDER Verified 09/29/24 14:41 ULCERATIONS levetiracetam [From Keppra] AdvReac Intermediate Muscle Pain Verified 09/29/24 14:41 Medications Home Medications Medication Instructions Recorded Confirmed Last Taken amlodipine 5 mg tablet (Norvasc) 5 mg PO QAM 06/05/19 09/29/24 11/25/19 05:30 aspirin 81 mg tablet,delayed 81 mg PO QAM 06/05/19 09/29/24 11/25/19 05:30 release (Bryce Low Dose Aspirin) carvedilol 6.25 mg tablet (Coreg) 6.25 mg PO BID 06/05/19 09/29/24 11/25/19 05:30 doxepin 50 mg capsule 50 mg PO HS 06/05/19 09/29/24 11/24/19 22:00 ferrous sulfate 325 mg (65 mg 650 mg PO QPM 06/05/19 09/29/24 11/24/19 08:00 iron) tablet (iron) furosemide 20 mg tablet (Lasix) 20 mg PO BID 06/05/19 09/29/24 11/24/19 08:00 hydroxychloroquine 200 mg tablet 200 mg PO BID 06/05/19 09/29/24 11/25/19 05:30 (Plaquenil) lacosamide 50 mg tablet (Vimpat) 50 mg PO BID 06/05/19 09/29/24 11/25/19 05:30 losartan 100 mg tablet 100 mg PO QA 06/05/19 09/29/24 11/25/19 05:30 omega 2-axx-nei-fish oil 1,000 mg 2 cap PO QPM 06/05/19 09/29/24 11/24/19 22:00 (120 mg-180 mg) capsule (Fish Oil) sotalol 80 mg tablet 40 mg PO BID 06/05/19 09/29/24 11/25/19 05:30 atorvastatin 40 mg tablet (Lipitor) 40 mg PO HS 11/19/19 09/29/24 11/24/19 23:00 fluoxetine 20 mg capsule (Prozac) 20 mg PO QAM 11/19/19 09/29/24 11/25/19 05:30 apixaban 5 mg tablet (Eliquis) 5 mg PO BID 09/29/24 09/29/24 Unknown calcium carbonate 500 mg PO HS 09/29/24 09/29/24 Unknown cholecalciferol (vitamin D3) 125 125 mcg PO HS 09/29/24 09/29/24 Unknown mcg (5,000 unit) tablet (Vitamin D3) hydrocodone 7.5 mg-acetaminophen 1 tab PO Q6H PRN Pain 09/29/24 09/29/24 Unknown 325 mg tablet lamotrigine 100 mg tablet 100 mg PO BID 09/29/24 09/29/24 Unknown (Lamictal) levothyroxine 175 mcg tablet 175 mcg PO QAM 09/29/24 09/29/24 Unknown multivitamin 1 tab PO HS 09/29/24 09/29/24 Unknown pantoprazole 40 mg tablet,delayed 40 mg PO QAM 09/29/24 09/29/24 Unknown release Past Medical History Medical History (Updated 10/05/24 @ 14:06 by Flores Austin PA-C) AAA (abdominal aortic aneurysm) Anemia Stable - on iron supplement Anxiety Aortic stenosis mild CAD (coronary artery disease) NSTEMI with RCA stent 11/13/16. Subsequent stent occlusion with inferior STEMI 12/04/16- two PERLA to RCA. Went into complete heart block (+ pacemaker placed) Chronic back pain Chronic kidney disease stage 3a - monitoring Compression fracture of L1 vertebra since Spring 2023. follows with [facility] ([place]) Degenerative spondylolisthesis Depression GERD (gastroesophageal reflux disease) Controlled and stable High cholesterol History of atrial fibrillation 2016- stable and controlled History of complete heart block (03/2017) reason for pacemaker History of COVID- ~2020: loss of taste and smell, fatigue -> chronic. History of esophageal dilatation History of sick sinus syndrome (2016) Hx of renal calculi Hx of seizure disorder "stress induced" seizures- seen by neurologist Dr. Tan/Riddhi)- last seizure episode 01/2019- no issues since changed to Vimpat Hypertension controlled, stable per pt Hypothyroidism Interstitial cystitis Interstitial lung disease following with [facility] Pulmonary ([facility] [place]) Osteoarthritis Pacemaker follows with Dr. Petty - last checked Fall 2023 Peripheral neuropathy left leg Pulmonary hypertension Stable- no oxygen needed- follows with cardio - considered mild per cardio Rheumatoid arthritis Follows with prefinish operator - stable SOB (shortness of breath) after exertion, following with Cardiology (Dr Petty) and [facility] Pulmonary ([place], [place]) Dr. Pires Patient denies h/o stroke, heart failure, DM, blood clots/DVTs or blood transfusions. Exercise / Class Metabolic Activity II 4-5 Yardwork/Stairs/Walk up hill (shortness of breath with one flight of stairs-chronic, denies change or worsening; denies chest discomfort) Past Family History Family History Grandmother (Maternal) Family history of diabetes mellitus Grandfather (Paternal) Family hx of colon cancer Family history of diabetes mellitus Other No family history of adverse response to anesthesia Past Surgical History Surgical History (Updated 10/05/24 @ 14:06 by Flores Austin PA-C) History of ankle surgery right fusion (Dr Billings) History of cardiac cath [facility] 2023 - no stents x1 stents @ [facility] 2016 angioplasty (to open the initial stent) + 1 stents @ [facility] 2016 (3-4 post first cardiac cath) History of carpal tunnel release of both wrists History of esophagogastroduodenoscopy (EGD) History of permanent cardiac pacemaker placement placed in 2017 for a complete heart block - follows with Dr. Petty History of repair of left rotator cuff History of tooth extraction History of total left knee replacement (2019) Hx of cardiac cath 2011 and 2016 Hx of colonoscopy Hx of foot surgery right and left, Vásquez's neuromas Status post epidural steroid injection Past Anesthesia History No Hx of Anesthesia Complications and No Family Hx of Anesthesia Complications History of PONV No Hx of PONV and No Hx of Motion Sickness Social History Smoking Status: Never smoker Do You Dip or Chew Tobacco: No Hx Alcohol Use: No Hx Substance Use: No substance use type: does not use Review of Systems Patient denies chest pain, fever, chills, cough, wheezing, or palpitations. Physical Exam Vital Signs Vitals BP 104/62 P 60 TEMP 98.7 SP02 94% on RA RESP 17 Physical Patient resting comfortably in chair in no acute distress, alert and oriented, responding appropriately throughout visit Full cervical extension range of motion without pain TMD 3.5 finger breadths Mallampati Score 2 Dentition: right upper front tooth is in place with suction; several cap s/crowns; denies chipped or loose teeth, implants or bridges Lungs: normal respiratory effort. Good air movement, clear throughout to auscultation, no adventitious breath sounds Cardiac: regular rate and rhythm, no murmurs noted Carotid arteries: negative bruit bilat Lab Results Anesthesia Preop Results Results Anesthesia Widget: WBC 7.40 K/ul (4.8-10.8) 10/05/24 Hgb 10.4 g/dl (12.0-16.0) L 10/05/24 Hct 32.0 % (37.0-47.0) L 10/05/24 Plt 222 K/uL (130-400) 10/05/24 Na 142 mmol/L (136-145) 10/05/24 K 4.3 mmol/L (3.5-5.1) 10/05/24 Cl 106 mmol/L (98-107) 10/05/24 CO2 30 mmol/L (21-32) 10/05/24 BUN 22 mg/dl (6-23) 10/05/24 Creat 1.11 mg/dl (0.6-1.2) 10/05/24 Glucose Level 85 mg/dl (70-99(Fasting)) 10/05/24 PT 11.2 Seconds (9.0-12.0) 10/05/24 PTT 31 Seconds (21-31) 10/05/24 INR 1.0 (0.9-1.1) 10/05/24 Blood Type O Positive 10/05/24 Antibody Screen NEGATIVE 10/05/24 Testing Electrocardiogram Date: 10/05/24 Atrial paced rhythm with prolonged AV conduction, rate 60 bpm Chest X-Ray Date: 10/05/24 Stable pacemaker. Stable mild cardiomegaly with interval mild pulmonary vascular congestion. There is no consolidation or pleural effusion. No pneumothorax. IMPRESSION: Mild CHF. Echocardiogram Date: 10/30/23 EF 55-60% Normal wall motion Moderately increased RV systolic pressure Moderately dilated LA Mild to moderate mitral regurgitation Mild aortic valve stenosis (1.26 cm2, mean gradient 13 mmHg, peak gradient 25 mmHg 31) Mild aortic valve regurgitation Mild-moderate tricuspid regurgitation Grade I diastolic dysfunction Cervical Spine Date: 10/05/24 Mild translational motion at C4-5. Other Testing Pacemaker report 07/30/24 [facility] Abnormal implantable pacemaker remote follow-up No significant device-related abnormalities were noted 1 AHR events: all appear to be farfield and beats during refractory 0 afib episodes DDDR RA pacing 97% RV pacing 11% Retroperitoneum, attention aorta US 08/15/23 Proximal 2.1 x 2.3 cm Mid 2.2 x 2.5 cm Two areas of focal bulging of the aorta and the outer diameter is 3 cm at the more cranial bulge and 2.5 cm at the more caudal bulge. Iliac arteries are 13 mm in diameter with triphasic waveforms Extensive atherosclerotic changes throughout the abdominal aorta with 2 areas of ectasia in the distal aorta as described above Carotid doppler 10/18/22 < 50% stenosis ICAs bilat
[~2024-10-27 08:52] MED LIST changes: -ACETAMINOPHEN 500 MG TAB PO SCH; -BUPIVACAINE 0.25% 30 ML VIAL ONE; -BUPIVACAINE LIPOSOME/PF 266 MG, BUPIVACAINE/EPINEPHRINE 50 ML, SODIUM CHLORIDE 0.9% 30 ... INFIL SCH; -CEFAZOLIN 2000MG 2,000 MG/15 ML SYR IV SCH; -FAMOTIDINE 20 MG TAB PO SCH; -GABAPENTIN 300 MG CAP PO SCH; -LR 15ML/HR IV SCH; -LR 60ML/HR IV SCH; -METOCLOPRAMIDE HCL 10 MG TABLET PO SCH; +ROPIVACAINE 0.5% 5 MG/ML 30 ML VIAL ONE; -TRANEXAMIC ACID 1,000 MG **IV Intra-op IV SCH
[2024-10-27] MEDS: LR 60ML/HR IV SCH (08:55)
--- NOTE | 2024-10-27 09:02 | History & Physical Bridge Note ---
Date of Service October 27, 2024 History & Physical Bridge Note I have examined the patient, reviewed the History & Physical and in the interval since the performance of the History & Physical I have noted the following changes of clinical significance: no changes noted
[2024-10-27] MEDS ORDERED: MIDAZOLAM HCL 1 MG/ML 2ML VIAL ONE (09:22)
[2024-10-27] MEDS ORDERED: PROPOFOL IV EMULSION 10 MG/ML 20 ML VIAL IV ONE ×2 (09:22→12:19)
[2024-10-27] MEDS ORDERED: HYDROmorphone INJ 2 MG/ML SYR/VIAL IV PRN (09:36)
[2024-10-27] MEDS ORDERED: PROMETHAZINE HCL 6.25 MG in SODIUM CHLORIDE 0.9% 50 ML IV PRN (09:36)
[2024-10-27] MEDS ORDERED: ATROPINE SULFATE 0.1 MG/ML 10ML SYR IV PRN (09:36)
[2024-10-27] MEDS ORDERED: ONDANSETRON INJ 2 MG/ML 2 ML VIAL IV PRN (09:36)
[2024-10-27] MEDS: ACETAMINOPHEN 500 MG TAB PO SCH ×2 (09:40→14:49)
[2024-10-27] MEDS: METOCLOPRAMIDE HCL 10 MG TABLET PO SCH (09:41)
[2024-10-27] MEDS: FAMOTIDINE 20 MG TAB PO SCH (09:41)
[2024-10-27] MEDS: CeleBREX 200 MG CAP PO SCH (09:41)
[2024-10-27] MEDS: dexAMETHasone**PF** 10 MG/ML VIAL IV SCH (09:43)
[2024-10-27] MEDS: LR 500ML BOLUS, THEN 15ML/HR IV SCH (09:43)
[2024-10-27] MEDS ORDERED: ePHEDrine sulfate 50 MG/5 ML SYR ONE (11:30)
[2024-10-27] MEDS ORDERED: PHENYLEPHRINE 100MCG/ML 5ML SYR ONE (11:30)
[2024-10-27] MEDS: ROPIV 0.5% 246mg, Ketorolac 30mg, EPINEPHrine 0.5mg in NSS INFIL SCH (11:53)
[2024-10-27] MEDS: ORTHO JOINT ANESTHETIC ONE (11:54)
[2024-10-27] MEDS: VANCOMYCIN HCL 1000MG/20ML VIAL ONE (11:54)
[2024-10-27] MEDS ORDERED: ONDANSETRON INJ 2 MG/ML 2 ML VIAL ONE (11:59)
--- NOTE | 2024-10-27 13:01 | Operative Report ---
PG Post Operative Report Pre & Post Diagnosis Operation Date: 10/27/24 10:40 Pre-Op Diagnosis: Right Knee Osteoarthritis Post-Op Diagnosis: Right Knee Osteoarthritis I identified the patient and participated in the time-out.: Yes Procedure Operation Date: 10/27/24 10:40 Actual Procedures p Right Total Knee Arthroplasty(Right) - Kaleb Billings MD Surgeon Kaleb Billings MD Psychiatric Specialist Kg Mccarty PA-C Estimated Blood Loss 100 Findings Consistent with Post-Op Diagnosis Specimens Right knee sent for pathology. Anesthesia Type Spinal MAC Complications none Disposition Accompanied Patient To Recovery: No Indications Patient is a 69-year-old female with longstanding rheumatoid disease who said a long history of joint problems in the past. She has undergone multiple procedures for joint related disease. Over the past several years she developed increased pain discomfort stiffness in her right knee. She failed conservative measures. X-rays showed advanced right knee DJD. That she elected proceed with total knee arthroplasty. Description of Procedure Operative implants consist of: 1. Biomet Vanguard size 65 right posterior stabilized femoral component. 2. Biomet size 71 tibial tray. 3. 10 mm posterior stabilized polyethylene insert. 4. 31 x 8 all poly patella. The patient was taken to the op room, identified, placed on the operating table in supine position. All conductors were appropriately padded. IV antibiotics provided by anesthesia team. A Craig catheter was placed in sterile fashion. A spinal anesthetic and adductor canal block had been provided in the holding area. A right thigh tourniquet was then placed. The right lower extremity was then prepped and draped in usual sterile fashion. The right leg was elevated and exsanguinated with use of an Esmarch and a turn was placed at 300 mmHg. An anterior approach to the right knee was then performed through a longitudinal incision centered over the patella. Sharp dissection was carried through subcutaneous tissue down the extensor mechanism. A medial parapatellar arthrotomy incision was made. Some subperiosteal dissection was carried out medially. The fat pad was dissected from Neath patella tendon. Lateral patellofemoral ligament was released. The patella subluxated laterally and the knee was flexed. The osteophytes taken off distal femur. The ACL and PCL were then released from the distal femur and the tibia subluxated anteriorly. The external tibial line. Was then placed on the anterior face of the tibia and adjusted 14 mm medially. The proximal tibial cut was made to remove about 2 mm of bone from the medial side. Some osteophytes taken off medial and posterior medially. The tibia sized to a size 71. Attention then drawn the femur. The distal femur was entered with a sharp drill. Intramedullary canal was suction. Right 5 degree valgus cutting guide was placed. Distal femoral cutting block was pinned in place. The distal femoral cut was made taking additional 3 mm of bone off distal femur. The femur was then sized to a size 65. The AP cutting block was pinned parallel to the epicondylar axis which was 5 degrees of external rotation. The anterior cut, anterior chamfer, posterior cut, posterior chamfer cuts were made. The box cutting guide was placed in a just slight lateral and the box cut was made. The knee was flexed. The remnants of the medial and lateral menisci were excised. The osteophytes taken off the posterior aspect of the femur. A trial femoral component was placed. The tibial tray was pinned in Rhoda external rotation and the drill and stem punch were used to create defect in the proximal tibia for the tibial tray. The knee was then trialed and the 10 mm insert fit most appropriately. Attention drawn the patella. The patella was cleaned of all soft tissues. Patella thickness measured 20 mm in thickness was cut down to 13. Was sized to a size 31 patella. The lug holes were drilled for 31 patella. The lateral osteophytes removed. Patella button was placed. Knee was taken through range of motion patella tracked nicely with no thumbs test. Attention was then drawn to placing the permanent components. NuPrep all trial components were removed. Bone plug was placed into this femur limit blood loss. A double batch Palacos G cement was mixed. I did add an additional gram of vancomycin due to her immunocompromise status and rheumatoid disease. A Biomet Vanguard size 65 right posterior stabilized femoral component, size 71 tibial tray, 10 mm posterior stabilized polyethylene insert, and a 31 x 8 all poly patella then cemented in place. The knee was brought out into full extension till cement hardened. Final cement check was then performed. The pericapsular tissues were injected with total 100 cc of Ortho mix. The patient did receive 1 g of tranexamic acid. The tourniquet was then let down for final tourniquet time was 61 minutes. Hemostasis surges electrocautery. Extensor Meclomen then closed with combination 1 PDS suture and 1 Vicryl suture in a [id number] fashion. Extensor Meclomen checked found to be intact. Subcutaneous tissue then closed with 2 Dexon suture in a buried erupted fashion and the skin was closed skin red. Leg was then cleaned and dried a sterile dressing with Xeroform, 4 fours, sterile cast padding, Ronnie bandage were applied. Patient then transferred to the recovery room in stable condition. Patient tolerated procedure well and there are no complications. Kg Mccarty, my physician assistant produce manager, was present for the entire procedure. H is assistance was required for proper patient positioning, prepping and draping, surgical exposure, retraction, perform the technical details of the operation, placement of the implants, closure of the incision site, and placement of postoperative sterile bandage. I attest to the content of the Intraoperative Record and any orders documented therein. Any exceptions are noted below.
--- NOTE | 2024-10-27 13:18 | XRay Report ---
XR knee RT 1 or 2V routine CLINICAL HISTORY: Surgical Post Op COMPARISON: None FINDINGS: Right knee prosthesis shows no hardware complication. There is expected soft tissue gas. S kin red are present. IMPRESSION: Unremarkable postoperative exam. ACT 112: Negative or not required by law. Electronically signed by: Ta Peñaloza M.D. 10/27/2024 1:17 PM
[2024-10-27] MEDS ORDERED: MAGNESIUM HYDROXIDE SUSP 30 ML UDC PO PRN (14:03)
[2024-10-27] MEDS ORDERED: METOCLOPRAMIDE HCL INJ 5 MG/ML 2 ML VIAL IV PRN (14:03)
[2024-10-27] MEDS ORDERED: ALUMINUM/MAGNESIUM SUSP 30 ML UDC PO PRN (14:03)
[2024-10-27] MEDS ORDERED: HYDROmorphone INJ 0.5 MG/0.5 ML SYR IV PRN (14:03)
[2024-10-27] MEDS ORDERED: NALOXONE HCL 0.4 MG/1 ML VIAL/CARP IV PRN (14:03)
[2024-10-27] MEDS: SODIUM CHLORIDE 0.9% 1,000 ML IV SCH (14:24)
[2024-10-27] MEDS: KETOROLAC TROMETHAMINE 15 MG/ML VIAL IV SCH (14:49)
--- NOTE | 2024-10-27 16:19 | Anesthesiology Progress Note ---
Date of Service October 27, 2024 Anesthesia Post Procedure Vital Signs Vital Signs: Temp Pulse Pulse Resp BP BP Pulse Ox 10/27/24 16:00 37.0 C 60 15 126/54 L 94 10/27/24 15:34 37 C 61 16 133/49 L 94 10/27/24 14:35 36.7 C 61 16 121/72 94 10/27/24 14:00 36.7 C 59 L 16 138/63 96 10/27/24 13:40 62 14 129/51 L 93 10/27/24 13:25 36.3 C L 60 16 125/48 L 98 10/27/24 13:15 60 16 134/51 L 100 10/27/24 13:05 62 16 136/54 L 100 10/27/24 12:58 36.7 C 60 12 114/53 L 100 10/27/24 09:25 36.8 C 60 20 163/53 H 96 O2 Del Method O2 Flow Rate 10/27/24 16:00 Room Air 10/27/24 15:34 Room Air 10/27/24 14:35 Room Air 10/27/24 14:00 Room Air 10/27/24 13:40 Room Air 10/27/24 13:25 Room Air 10/27/24 13:15 Oxymask 3 10/27/24 13:05 Oxymask 6 10/27/24 12:58 Oxymask 6 10/27/24 09:25 Room Air Pain Intensity Bilateral Hand: Pain Intensity: 4 Transfer of Care Handoff Completed per policy Notes Mental Status: alert / awake / arousable and participated in evaluation Nausea / Vomiting: adequately controlled Pain: adequately controlled Airway Patency, RR, SpO2: stable & adequate BP & HR: stable & adequate Hydration State: stable & adequate Neuraxial Anesthesia: was administered and sensory block is resolving Anesthetic Complications: no major complications apparent and Pt Satisfied with anesthetic care
[2024-10-27] MEDS: FUROSEMIDE 20 MG TAB PO SCH (17:29)
[2024-10-27] MEDS: ASCORBIC ACID 500 MG TAB PO SCH (17:30)
[2024-10-27 18:07] VITALS: RESP 16
[2024-10-27] MEDS: TRANEXAMIC ACID / 0.7% NACL 1,000 MG/100 ML BAG IV SCH (18:43)
[2024-10-27] MEDS: SENNA 8.6 MG TAB PO SCH (20:30)
[2024-10-27] MEDS: DOCUSATE SODIUM 100 MG CAP PO SCH (20:31)
[2024-10-27] MEDS: ATORVASTATIN 40 MG TAB PO SCH (20:31)
[2024-10-27] MEDS: CALCIUM CARBONATE 1250MG TAB PO SCH (20:31)
[2024-10-27] MEDS: DOXEPIN HCL 50 MG CAPSULE PO SCH (20:33)
[2024-10-27] MEDS: FERROUS SULFATE 325 MG TAB PO SCH (20:33)
[2024-10-27] MEDS: CHOLECALCIFEROL 125 MCG (5,000 UNITS) TAB PO SCH (20:33)
[2024-10-27] MEDS: HYDROXYCHLOROQUINE SULFATE 200 MG TAB PO SCH (20:34)
[2024-10-27] MEDS: OMEGA-3 (PURIFIED FISH OIL) 1 GM CAP PO SCH (20:34)
[2024-10-27] MEDS: lamoTRIgine 100 MG TAB PO SCH (20:34)
[2024-10-27] MEDS: SOTALOL HCL 80 MG TAB PO SCH (20:35)
[2024-10-27] MEDS: LACOSAMIDE 50 MG TABLET PO SCH (20:42)
[2024-10-27] MEDS ORDERED: SENNA 8.6 MG TAB PO SCH (21:00)
[2024-10-27] MEDS ORDERED: NON-FORMULARY MEDICATION (Multivitamin Tablet) PO SCH (21:00)
[2024-10-28] MEDS: LEVOTHYROXINE SODIUM 175 MCG TABLET PO SCH (05:19)
[2024-10-28 06:37] LABS: Hematocrit (blood only) 29.0 % (37.0-47.0); Hemoglobin 9.1 g/dl (12.0-16.0); Mean Corpuscular Hemoglobin 31.3 pg (25.0-34.0); Mean Corpuscular Volume 99.7 fL (80.0-100.0); Platelet Count 158 K/uL (130-400); RDW Standard Deviation 47.1 fL (36.4-46.3); Red Blood Count 2.91 M/uL (4.20-5.40); White Blood Count 12.55 K/ul (4.8-10.8)
[2024-10-28 06:55] LABS: Anion Gap 6.0 (3-11); Blood Urea Nitrogen 30.0 mg/dl (6-23); Calcium 8.5 mg/dl (8.6-10.3); Carbon Dioxide 29.0 mmol/L (21-32); Chloride 102.0 mmol/L (98-107); Creatinine Clr Calc Pharmacy 31.7 ml/min; Glucose 127.0 mg/dl (70-99(Fasting)); Potassium 4.9 mmol/L (3.5-5.1); Sodium 137.0 mmol/L (136-145)
[2024-10-28] MEDS: dexAMETHasone 10 MG in SYRINGE 0 ML IV SCH (07:36)
--- NOTE | 2024-10-28 08:17 | Orthopedic Progress Note ---
Date of Service October 28, 2024 Assessment & Plan (1) Status post total right knee replacement: * Continue Current Treatment * Disposition: home * Daily treatment: Physical Therapy/ Occupational Therapy per protocol * Weight bearing status: WBAT * Continue to monitor for ABLA * Pain control * DVT prophylaxis, ASA * Office/hospital f/u 2 weeks for progress check and staple/suture removal * Plan for discharge today pending PT/OT clearance Subjective .Active Problems: S/p R TKA POD 1 69 y/o female s/p right TKA. Doing well overall, pain managed and improved function. Denies fever/chills, chest pain/SOB, nausea/vomiting. Otherwise no complaints. Review of Systems All systems reviewed & are unremarkable except as noted in HPI & below. Physical Exam . * General: Alert and oriented, no acute distress * Constitutional: well-developed, well-nourished. * Respiratory: Normal respiratory effort, no distress * Gastrointestinal: No tenderness to palpation, no rigidity or guarding. * Skin: No rash or lesion. * Neurologic: Grossly normal * Musculoskeletal: Right knee surgical dressing CDI, not removed for exam. Otherwise no obvious deformity or overlying skin changes RLE. Diffuse TTP distal thigh and knee region. Otherwise no specific tenderness of proximal thigh, lower leg, foot/ankle. AROM knee flexion 110 degrees. AROM foot/ankle intact. Sensation intact plantar/dorsal foot. Brisk capillary refill. Results & Data Results & Data Laboratory Results . Diagnostic Findings . Knee X-Ray 10/27/24 12:58 XR knee RT 1 or 2V routine CLINICAL HISTORY: Surgical Post Op COMPARISON: None FINDINGS: Right knee prosthesis shows no hardware complication. There is expected soft tissue gas. Skin red are present. IMPRESSION: Unremarkable postoperative exam. ACT 112: Negative or not required by law. Electronically signed by: Ta Peñaloza M.D. 10/27/2024 1:17 PM PG Care Time/CCT Total # of Minutes Spent Total Time Spent with Patient: Total time spent is greater than 50% in coordination of care (as documented) at patient's floor/unit and/or counseling patient: Coding Level of Care Code 74265 Post Operative Follow-Up Diagnoses Status post total right knee replacement Z96.651
[2024-10-28 08:19] VITALS: TEMP 98.1; O2SAT 99
[2024-10-28] MEDS: ONDANSETRON INJ 2 MG/ML 2 ML VIAL IV PRN (08:51)
[2024-10-28 08:59] VITALS: BP 173/83; PULSE 60
[2024-10-28] MEDS: LOSARTAN POTASSIUM 50 MG TAB PO SCH (09:00)
[2024-10-28] MEDS: MULTIVITAMIN TAB PO SCH (09:00)
[2024-10-28] MEDS: APIXABAN 2.5 MG TAB PO SCH (09:00)
[2024-10-28] MEDS: ASPIRIN 81 MG ECTAB PO SCH (09:01)
== END 2024-10-28 11:37 | disposition home health service (06) ==
LOC: ASU 08:52 → 3E 08:52